=== PATIENT | female | born 1990 | race Caucasian/White ===

== ENCOUNTER 2023-12-31 20:05 | Emergency (ER) | payer OTHER, SELFPAY ==
[2023-12-31 20:10] VITALS: BP 151/100; PULSE 77; O2SAT 99
[2023-12-31 20:13] VITALS: BP 150/91; PULSE 79; RESP 16; TEMP 36.7; O2SAT 98; BMI 42.9
--- NOTE | 2023-12-31 20:18 | XR_ITS ---
PROCEDURE INFORMATION: Exam: XR Left Foot Exam date and time: 12/31/2023 8:13 PM Age: 33 years old Clinical indication: Pain; Foot; Left; Patient HX: Prior FX 3 years ago to 5th metatarsal; Additional info: Pain/swelling TECHNIQUE: Imaging protocol: Radiologic exam of the left foot. Views: 3 or more views. Total images: 3 COMPARISON: No relevant prior studies available. FINDINGS: Bones/joints: No acute fracture or joint dislocation. Fusiform cortical thickening mid to distal shaft of the 3rd metatarsal compatible with chronic biomechanical stress injury. Healed remote fracture of the 5th metatarsal. No concerning bone lesions or pathologic calcifications. Corticated ossicles adjacent to the navicular and cuboid tarsal bones. No significant degenerative arthropathy. Soft tissues: Unremarkable soft tissues. IMPRESSION: 1. No acute osseous abnormality. 2. 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 Remote healed fracture 5th metatarsal.
--- NOTE | 2023-12-31 21:07 | HMH.EDGENADL ---
Discharge Plan Disposition Chief Complaint: Extremity Injury, Lower Referrals Follow up/Referrals: Provider,Referral, [Primary Care Provider] - See instructions Weston Covarrubias DO [Staff Physician] - See instructions Activity Restrictions/Add. Instructions Additional Instructions/Restrictions: At this time is felt you are safe to be discharged home. If new or worsening symptoms please not hesitate to return the emergency department. You have biomechanical stress injury of your third metatarsal. For this please wear your hard soled shoe as needed and bear weight as tolerated. Please call and schedule appointment with Dr. Covarrubias. For pain please take Tylenol and ibuprofen every 6 hours, it is okay to take them at the same time. Clinical Impressions Clinical Impression: Pain in metatarsus of left foot Discharge ED Provider: Eduar Mckeon General Adult HPI General Chief complaint: Extremity Injury, Lower Stated complaint: LT foot swollen, painful Time Seen by Provider: 12/31/23 20:08 Mode of Arrival: Ambulatory Source of Information: Patient Limitations: No Limitations Description of Symptoms (Recalled from ER Triage Doc. by RN): Pt to ED with left foot pain and swelling. Pt reports breaking 5th metatarsal 3 years ago. Pt states she started work yesterday on her feet for 8 hours and her pain started last night. Pt took ibuprofen @1600. History of Present Illness HPI narrative: Patient is a 33-year-old female past medical history of traumatic fracture of her fifth metatarsal 3 years ago who presents emergency department for evaluation of foot pain. Patient has had intermittent problems with foot pain especially upon standing for long periods of time. She was supposed to follow-up after her fracture however was lost to follow-up. She started a new job yesterday which requires her to be on her feet. She awoke this morning with pain and swelling causing her to present here for continued evaluation. No acute trauma. No other acute complaints at this time. Related Data Allergies Allergy/AdvReac Type Severity Reaction Status Date / Time No Known Allergies Allergy Unverified 09/27/17 14:50 [facility] Disclaimer: The information contained in this section may have been updated after the patient was seen, as this information can be updated by other users. Social History Smoking Status: Unknown if ever smoked alcohol intake: never current occupational status: employed Travel in the last 8 weeks: None ROS Obtained: Yes Systems reviewed as appropriate & no additional complaints except as documented Physical Exam General General appearance: alert and in no apparent distress Head Head exam: atraumatic and normocephalic Eye Eye exam: Present PERRL Neck Neck exam: Present normal inspection Chest Chest inspection: Present normal inspection and symmetric chest wall rise Respiratory Respiratory exam: Absent respiratory distress Cardiovascular Cardiovascular exam: Present regular rate and normal rhythm Extremities Exam Extremities exam: Present other (Swollen left foot over the area of the metatarsals. Preserved capillary refill in the digits of the left foot. Palpable dorsal pedal pulse. No overlying significant skin changes.) Neurological Exam Neurological exam: Present alert Psychiatric Psychiatric exam: Present normal affect Skin Skin exam: Present warm and dry Medical Decision Making Roger Inquiry Pt receiving controlled substance: No Vital Signs: 12/31/23 20:10 12/31/23 20:13 Temperature 98.1 F Temperature Source Oral Pulse Rate 77 Pulse Rate [Left Radial] 79 Respiratory Rate 16 Blood Pressure 151/100 H Blood Pressure [Right Arm] 150/91 H Blood Pressure Mean 109 Blood Pressure Mean [Right Arm] 110 Blood Pressure Source [Right Arm] Automatic Cuff Blood Pressure Position [Right Arm] Sitting 02 Sat by Pulse Oximetry 99 98 Oxygen Delivery Method Room Air Orders (Tests/Meds): ORDERS Category Date Time Status Foot XR left minimum 3 views [XR foot LT min 3V] Stat Exams 12/31/23 20:18 Completed Medical Decision Narrative: In summary patient is a 33-year-old female with past medical history described above who presents emergency department for evaluation of foot pain. Patient is hemodynamically stable nontoxic-appearing upon arrival, afebrile. Differential diagnosis includes malunion, musculotendinous injury, among others. Limited workup will be conducted with plain film of the affected foot. Plain film of the left foot interpreted by me informally, no acute significantly displaced fracture. Formal read shows chronic biomechanical stress injury to the third metatarsal, healed remote fifth metatarsal fracture. Given this patient was placed in a hard soled shoe and can bear weight as tolerated and will follow-up with Dr. Covarrubias on an outpatient basis. Critical Care Critical Care Time Critical Care Time: No
[2023-12-31 21:19] VITALS: BP 134/85; PULSE 78; RESP 16; TEMP 36.8; O2SAT 95
== END 2023-12-31 21:20 | disposition home or self-care (01) ==
PROVIDERS: Emergency Provider Emergency Medicine
DX: M79.672 Pain in left foot (principal)
CPT/HCPCS: 73630; 99283

== ENCOUNTER 2024-01-24 16:46 | Emergency (ER) | payer OTHER, SELFPAY ==
[2024-01-24 17:05] VITALS: BP 130/83; PULSE 70; RESP 18; TEMP 36.8; O2SAT 96; BMI 27.0
--- NOTE | 2024-01-24 17:34 | EXP.UTC ---
Discharge Plan Disposition Patient Disposition: Home, Self-Care Condition: Good Prescriptions Prescriptions: New exxpbwelcgwelah-fzndauiuj-CD [Bromfed DM] 2-30-10 mg/5 mL Syrup 5 ml PO Q6H PRN (Reason: Cough) Qty: 240 0RF ondansetron 4 mg Tablet,Disintegrating 4 mg PO Q8H PRN (Reason: Nausea) Qty: 12 0RF Referrals Follow up/Referrals: Provider,Referral, MD [Primary Care Provider] - See instructions Activity Restrictions/Add. Instructions Additional Instructions/Restrictions: Drink plenty of fluids. Take tylenol or ibuprofen for pain or fever. Take the medications as directed. Follow up with your regular doctor. GO TO THE ER FOR ANY WORSENING SYMPTOMS Clinical Impressions Clinical Impression: Acute viral syndrome Stand Alone Forms Stand Alone Forms: Work/School Release Instructions Patient Instructions: DI for Viral Syndrome Discharge ED Provider: Vahid Cunningham [facility] HPI General Stated complaint: fever,chills , cough Time Seen by Provider: 01/24/24 17:30 History of Present Illness Provider Complaint: She states that for the past 2 days she has had low grade fever, malaise, and scratchy throat. Related Data Previous Rx's Medication Instructions Recorded sylvlfzrcodxnke-qsumzujmifpjrkg-HT 5 ml PO Q6H PRN Cough #240 mL 01/24/24 2 mg-30 mg-10 mg/5 mL oral syrup (Bromfed DM) ondansetron 4 mg disintegrating 4 mg PO Q8H PRN Nausea #12 tabs 01/24/24 tablet Allergies Allergy/AdvReac Type Severity Reaction Status Date / Time No Known Allergies Allergy Verified 01/24/24 17:52 [facility] Disclaimer: The information contained in this section may have been updated after the patient was seen, as this information can be updated by other users. Social History Smoking Status: Unknown if ever smoked alcohol intake: never current occupational status: employed Travel in the last 8 weeks: None ROS Obtained: Yes All systems reviewed & no additional complaints except as documented Constitutional Constitutional: Reports chills and Reports fever(s) Eyes Eyes: Denies eye discharge ENT Ears, Nose, Mouth, and Throat: Reports as per HPI Cardiovascular Cardiovascular: Denies chest pain Respiratory Respiratory: Denies chest congestion and Reports cough Gastrointestinal Gastrointestingal: Reports nausea; Denies abdominal pain, constipation, cramping, diarrhea or vomiting Musculoskeletal Musculoskeletal: Denies arthralgias Integumentary/Breasts Skin/Breast: Denies rash Neurologic Neurologic: Denies paresthesias Physical Exam General General appearance: alert and in no apparent distress Head Head exam: atraumatic, normocephalic and normal inspection Eye Eye exam: Present normal appearance, PERRL and EOMI ENT ENT exam: Present normal exam, normal oropharynx, mucous membranes moist, TM's normal bilaterally and normal external ear exam Neck Neck exam: Present normal inspection, full ROM and trachea midline; Absent meningismus or lymphadenopathy Chest Chest inspection: Present normal inspection and symmetric chest wall rise; Absent tenderness Respiratory Respiratory exam: Present normal lung sounds bilaterally; Absent respiratory distress Cardiovascular Cardiovascular exam: Present regular rate and normal rhythm; Absent JVD Abdominal Exam Abdominal exam: Present soft and normal bowel sounds; Absent distention, tenderness or guarding Extremities Exam Extremities exam: Present normal inspection, full ROM and normal capillary refill; Absent calf tenderness Back Exam Back exam: Present normal inspection; Absent tenderness Neurological Exam Neurological exam: Present alert and oriented X3 Psychiatric Psychiatric exam: Present normal affect and normal mood Skin Skin exam: Present warm, dry, intact and normal color Lymphatic Lymphatic Findings: no adenopathy Medical Decision Making Medical Records Medical records reviewed: No I reviewed the patient's medical records. Roger Inquiry Pt receiving controlled substance: No Lab Data Lab results reviewed: Yes I reviewed the patient's lab results.
[2024-01-24 17:52] LABS: UTC Strep Screen (Rapid) Negative (Negative)
[2024-01-24 17:52] LABS: UTC Influenza A Antigen Negative (Negative); UTC Influenza B Antigen Negative (Negative)
[2024-01-24 18:29] VITALS: BP 130/83; PULSE 70; RESP 18; TEMP 36.8; O2SAT 96
--- NOTE | 2024-01-24 18:29 | PC.NURSE ---
Rapid covid sent to lab via tube
[2024-01-24 18:32] LABS: Coronavirus 19, PCR Not Detected (NotDetected); Influenza A, PCR Not Detected (NotDetected); Influenza B, PCR Not Detected (NotDetected)
== END 2024-01-24 18:29 | disposition home or self-care (01) ==
PROVIDERS: Emergency Provider Nurse Practitioner Family
DX: R07.0 Pain in throat; R50.9 Fever, unspecified; R53.81 Other malaise; B34.9 Viral infection, unspecified
CPT/HCPCS: 87636; 87804; 87880; 99204; 99212; G0463

== ENCOUNTER 2024-04-27 07:47 | Emergency (ER) | payer OTHER, SELFPAY ==
[2024-04-27 07:48] VITALS: BP 136/80; PULSE 88; RESP 16; TEMP 36.8; O2SAT 98; BMI 26.3
[2024-04-27 08:00] VITALS: BP 118/79; PULSE 87; O2SAT 94
--- NOTE | 2024-04-27 08:00 | HMH.EDGENADL ---
Discharge Plan Disposition Patient Disposition: Home, Self-Care Condition: Good Prescriptions Prescriptions: No Action lprxhbwiehfpkpv-yorunykgh-QY [Bromfed DM] 2-30-10 mg/5 mL Syrup 5 ml PO Q6H PRN (Reason: Cough) Qty: 240 0RF ondansetron 4 mg Tablet,Disintegrating 4 mg PO Q8H PRN (Reason: Nausea) Qty: 12 0RF Referrals Follow up/Referrals: Provider,Referral, MD [Primary Care Provider] - See instructions Activity Restrictions/Add. Instructions Additional Instructions/Restrictions: Take Tylenol and ibuprofen as needed for fever, body aches, and sore throat. Follow up w/ PCP. Please return to the ED w/ any new, concerning, or worsening symptoms. Clinical Impressions Clinical Impression: Acute viral syndrome, COVID-19 Stand Alone Forms Stand Alone Forms: Work/School Release Discharge ED Provider: Jas Guy General Adult HPI General Chief complaint: Upper Respiratory Infection Stated complaint: fever, cough, runny nose, lethargic Time Seen by Provider: 04/27/24 07:57 Mode of Arrival: Ambulatory Source of Information: Patient Limitations: No Limitations Description of Symptoms (Recalled from ER Triage Doc. by RN): pt presents to ED with c/o positive covid test last night at home. pt reports cough, lethargy, reported fever, runny nose. symptoms began last night. History of Present Illness HPI narrative: This is a previously healthy 34 yo F who presents w/ concern for + COVID test at home. Reports fever to 102 F, cough, chills, sore throat, congest, and rhinorrhea x 1 day. Denies N/V/D. Denies SOB and chest pain. States work sent her in. Related Data Previous Rx's Medication Instructions Recorded gdfxctgnpmorpnv-msftmnhsnxdlijq-WJ 5 ml PO Q6H PRN Cough #240 mL 01/24/24 2 mg-30 mg-10 mg/5 mL oral syrup (Bromfed DM) ondansetron 4 mg disintegrating 4 mg PO Q8H PRN Nausea #12 tabs 01/24/24 tablet Allergies Allergy/AdvReac Type Severity Reaction Status Date / Time No Known Allergies Allergy Verified 01/24/24 17:52 [facility] Disclaimer: The information contained in this section may have been updated after the patient was seen, as this information can be updated by other users. Social History Smoking Status: Never smoker alcohol intake: never current occupational status: employed Travel in the last 8 weeks: None ROS Obtained: Yes All systems reviewed & no additional complaints except as documented Physical Exam General General appearance: alert and in no apparent distress Eye Eye exam: Present normal appearance, PERRL and EOMI Respiratory Respiratory exam: Present normal lung sounds bilaterally; Absent respiratory distress Cardiovascular Cardiovascular exam: Present regular rate and normal rhythm Abdominal Exam Abdominal exam: Present soft and distention; Absent tenderness, guarding or rebound Extremities Exam Extremities exam: Present normal inspection Neurological Exam Neurological exam: Present alert and oriented X3 Skin Skin exam: Present warm and dry Medical Decision Making Medical Records Medical records reviewed: Yes I reviewed the patient's medical records. Roger Inquiry Pt receiving controlled substance: No Vital Signs: 04/27/24 07:48 04/27/24 08:00 04/27/24 09:00 Temperature 98.3 F Temperature Source Oral Pulse Rate 87 73 Pulse Rate [Left Radial] 88 Respiratory Rate 16 16 Blood Pressure 118/79 118/79 Blood Pressure [Right Arm] 136/80 Blood Pressure Mean 92 Blood Pressure Mean [Right Arm] 98 Blood Pressure Source Automatic Cuff Blood Pressure Position Sitting 02 Sat by Pulse Oximetry 98 94 L 96 Oxygen Delivery Method Room Air Room Air 04/27/24 09:20 Temperature 98.3 F Temperature Source Oral Pulse Rate 82 Pulse Rate [Left Radial] Respiratory Rate 16 Blood Pressure 110/69 Blood Pressure [Right Arm] Blood Pressure Mean Blood Pressure Mean [Right Arm] Blood Pressure Source Automatic Cuff Blood Pressure Position Sitting 02 Sat by Pulse Oximetry Oxygen Delivery Method Room Air Lab Data Lab Results 04/27/24 07:51: SARS-CoV-2 (PCR) Detected A, Influenza A Untype (PCR) Not detected, Influenza Type B (PCR) Not detected Orders (Tests/Meds): ED MEDICATIONS Discontinued Medications Generic Name Dose Route Start Last Admin Trade Name Freq PRN Reason Stop Dose Admin Acetaminophen 1,000 mg 04/27/24 08:09 04/27/24 08:19 Acetaminophen 500mg Tab PO 04/27/24 08:10 1,000 mg ONCE ONE Administration Ibuprofen 400 mg 04/27/24 08:09 07/19/24 08:19 Ibuprofen 400 Mg Tablet PO 04/27/24 08:10 400 mg ONCE ONE Administration ORDERS Category Date Time Status Chest XR 2 view (NOT portable) [XR chest 2V] Stat Exams 04/27/24 08:08 Taken Rapid PCR Covid and Flu A/B Stat Lab 04/27/24 07:51 Completed Medical Decision Narrative: This is a 34 yo F w/ no significant PMHx who presents w/ fever, cough, sore throat, congestion, and rhinorrhea x 1 day. On arrival, pt afebrile, HDS, and nontoxic appearing. Ddx includes but is not limited to PNA, viral URA, COVID. Offered labs and IV fluids but pt declined. Agreed to proceed w/ viral swab and CXR. Gave Tylenol/ibuprofen. COVID +. CXR independently interpreted by me revealing of no acute cardiopulmonary pathology. On re-evaluation, pt stable and appropriate for discharge w/ OP management w/ OTC medications. Diagnosis discussed and return precautions given. Pt discharged in stable condition. Critical Care Critical Care Time Critical Care Time: No
--- NOTE | 2024-04-27 08:08 | XR_ITS ---
FINAL REPORT CLINICAL HISTORY: fever, cough COMPARISON: None FINDINGS: PA and lateral views of the chest are obtained. There is no prior exam for comparison. The cardiac and mediastinal silhouettes are within normal limits. The lungs are clear. There is no pleural effusion, pneumothorax, or acute osseous abnormality. IMPRESSION: No radiographic evidence of acute cardiac or pulmonary disease. Reviewed, Interpreted and Dictated by Vivian Romeo MD Transcribed by Kristie Cloud Authenticated and [facility][1]
[2024-04-27] MEDS: IBUPROFEN 400 MG TABLET PO (08:19)
[2024-04-27] MEDS: ACETAMINOPHEN 500MG TAB 1000 MG PO (08:19)
[2024-04-27 08:38] LABS: Influenza A, PCR Not Detected (NotDetected); Influenza B, PCR Not Detected (NotDetected)
[2024-04-27 09:00] VITALS: BP 118/79; PULSE 73; RESP 16; O2SAT 96
[2024-04-27 09:06] LABS: Coronavirus 19, PCR Detected (NotDetected)
[2024-04-27 09:20] VITALS: BP 110/69; PULSE 82; RESP 16; TEMP 36.8; O2SAT 95
== END 2024-04-27 09:21 | disposition home or self-care (01) ==
PROVIDERS: Emergency Provider Student in an Organized Health Care Education/Training Program
DX: U07.1 COVID-19 (principal); R50.9 Fever, unspecified; R05.9 Cough, unspecified; R07.0 Pain in throat
CPT/HCPCS: 71046; 87636; 99283